=== PATIENT | female | born 1995 | race Caucasian/White ===

== ENCOUNTER 2017-10-13 06:04 | Emergency (ER) | payer BC ==
[~2017-10-13] VITALS: Ht 172.7 cm; Wt 68.0 kg
[2017-10-13] MEDS ORDERED: Metoclopramide 10mg/2ml Inj IVP ONE (06:30)
[2017-10-13] MEDS ORDERED: DiphenhydrAMINE 50mg/ml Inj IVP ONE (06:30)
[2017-10-13] MEDS ORDERED: CLARITIN10 M2 ORAL (07:01)
[2017-10-13 07:11] LABS: APPEARANCE,URINE CLEAR; KETONES,URINE 1+ (NEGATIVE); LEUKOCYTE ESTERASE ,URINE NEGATIVE (NEGATIVE); NITRITE,URINE NEGATIVE (NEGATIVE); PH,URINE 5 (4.5-8.0); PROTEIN,URINE NEGATIVE (NEGATIVE); UROBILINOGEN,URINE NORMAL MG/DL (0.0-1.0)
[2017-10-13] MEDS ORDERED: NS 250 ML IVPB ONE (07:15)
[2017-10-13 07:18] LABS: BASOPHILS % (AUTO) 2.1 % (0.0-2.0); EOSINOPHILS % (AUTO) 1.8 % (0.0-3.0); LYMPHOCYTES % (AUTO) 50.6 % (20.0-45.0); MEAN CORPUSCULAR HEMOGLOBIN 26.5 PG (27.0-31.0); MEAN CORPUSCULAR HGB CONC 32.3 G/DL (32.0-36.0); MEAN CORPUSCULAR VOLUME 82 FL (80-99); MEAN PLATELET VOLUME 9.7 FL (6.5-10.1); MONOCYTES % (AUTO) 9.4 % (1.0-10.0); NEUTROPHILS % (AUTO) 36.1 % (45.0-75.0); PLATELET COUNT 277 K/UL (150-450); RED BLOOD COUNT 4.64 M/UL (4.20-5.40); RED CELL DISTRIBUTION WIDTH 14.6 % (11.6-14.8); WHITE BLOOD COUNT 5.4 K/UL (4.8-10.8)
[2017-10-13] MEDS ORDERED: IBUPROFEN600 MG ORAL (08:08)
[2017-10-13 08:17] VITALS: BP 130/85
--- NOTE | 2017-10-13 08:18 | Emergency Room Report ---
History of Present Illness General Chief Complaint: Headache Source: Patient Present Illness [facility] The patient is a 22-year-old female who presented after increased right-sided headache. Patient gradual onset of symptoms. She reports having throbbing sensation to the right side of her head. This was associated with some photophobia. She denied any neck stiffness or fever. Patient reports having prior history of migraine headaches. She denies recent trauma. She denies prior workup for headaches. Patient denied any dysuria. She denies sore throat. She's not been having any numbness or weakness to her extremities. Allergies: Coded Allergies: No Known Allergies (Unverified , 10/13/17) Patient History Past Medical History: see triage record Last Menstrual Period: last week Now: No : 0 Review of Systems All Other Systems: negative except mentioned in HPI Physical Exam Vital Signs Date Time Temp Pulse Resp B/P (MAP) Pulse Ox O2 Delivery O2 Flow Rate FiO2 10/13/17 06:06 97.9 59 20 133/91 98 Room Air General Appearance: well appearing, no apparent distress, alert, GCS 15 Head: normocephalic, atraumatic ENT: hearing grossly normal, normal voice Neck: full range of motion, supple Respiratory: no respiratory distress, speaking full sentences Cardiovascular #1: normal inspection, normal peripheral pulses, regular rate, rhythm, no edema Gastrointestinal: normal inspection Musculoskeletal: normal inspection, back normal, normal range of motion, no calf tenderness Neurologic: normal inspection, alert, oriented x3, responsive, labor relations director III-XII nml as tested, motor strength/tone normal, cerebellar normal, normal gait Psychiatric: normal inspection, judgement/insight normal, mood/affect normal Skin: no rash Medical Decision Making Diagnostic Impression: Primary Impression: Headache ER Course Patient presented for headache. Differential diagnoses included but was not limited to skull fracture, subarachnoid hemorrhage, meningitis, aneurysm, mass lesion, intracranial hemorrhage. Because of complexity of patient's case laboratory testing and imaging studies were ordered. CT the head read by radiology showed no evidence of intracranial hemorrhage or CVA with normal ventricular size. The patient given Benadryl and Reglan with improvement in her headache.The patient is advised to follow up with primary care doctor in 1-2 days. Patient is advised to return if any worsening condition or if any changes in status that are concerning. This report is dictated with [employer] clinical trials systems administrator software which may occasionally lead to discrepancies related to use of this software. Last Vital Signs Date Time Temp Pulse Resp B/P (MAP) Pulse Ox O2 Delivery O2 Flow Rate FiO2 10/13/17 07:10 68 18 98 Room Air 10/13/17 06:06 97.9 133/91 Status: improved Disposition: HOME, SELF-CARE Condition: Stable Scripts Ibuprofen* (MOTRIN*) 600 Mg Tablet 600 MG ORAL Q8H Y for For Pain, #30 TAB 0 Refills Prov: Erickson Krishnamurthy 10/13/17 Loratadine (CLARITIN) 10 Mg Capsule 10 MG ORAL DAILY, #20 CAP Prov: Erickson Krishnamurthy 10/13/17 Patient Instructions: General Headache Without Cause Erickson Krishnamurthy Oct 13, 2017 08:18
--- NOTE | 2017-10-13 10:15 | Diagnostic Imaging Report ---
Indication: Headache Technique: Continuous helical CT scanning of the head was performed without intravenous contrast material. Axial and coronal 5 mm sections were generated. Radiation dose was minimized using automated exposure control Dose: Total Dose Length Product - DLP [address] Dose Index - CTDIvol(s) 70.38 mGy. Comparison: None Findings: The ventricular system is normal in size and configuration. There is no shift of midline structures. No abnormal extra-axial fluid collections are noted. There is no evidence of intracerebral bleeding. No other abnormal high or low density areas are noted within the brain. Intact calvarium. Visualized orbits and sinuses are unremarkable. Impression: Normal CT scan of the head without contrast material. This agrees with the preliminary interpretation provided overnight by [facility] teleradiology service. The CT scanner at [facility] is accredited by the [employer] and the scans are performed using protocols designed to limit radiation exposure to as low as reasonably achievable to attain images of sufficient resolution adequate for diagnostic evaluation.
== END 2017-10-13 08:17 | disposition home or self-care (01) ==
LOC: EMR 06:30
DX: R51 Headache (principal)
CPT/HCPCS: 36415; 70450; 81003; 81025; 85025; 96361; 96374; 96375; 99284; J1200; J2765; J7050